=== PATIENT | male | born 1940 ===

== ENCOUNTER 2019-02-28 09:34 | Day surgery (SDC) | payer MEDICARE, OTHER ==
[2019-02-28] MEDS ORDERED: LIDOcaine 2% 5ml jelly ONE (11:10)
== END 2019-02-28 12:09 | disposition home or self-care (01) ==
LOC: WOUND CARE 09:34
PROVIDERS: ATTEND Surgery
DX: E11.622 Type 2 diabetes mellitus with other skin ulcer (principal); L98.492 Non-pressure chronic ulcer of skin of other sites with fat layer exposed; L05.01 Pilonidal cyst with abscess; I11.0 Hypertensive heart disease with heart failure; I50.9 Heart failure, unspecified; G30.9 Alzheimer's disease, unspecified; B35.1 Tinea unguium; F02.80 Dementia in other diseases classified elsewhere, unspecified severity, without behavioral disturbance, psychotic disturbance, mood disturbance, and anxiety; Z79.01 Long term (current) use of anticoagulants
CPT/HCPCS: 36416; 82948; 97597; A4663; A6021

== ENCOUNTER 2019-03-07 09:37 | Day surgery (SDC) | payer MEDICARE, OTHER ==
[2019-03-07] MEDS ORDERED: LIDOcaine 2% 5ml jelly ONE (10:03)
== END 2019-03-07 11:16 | disposition home or self-care (01) ==
LOC: WOUND CARE 09:37
PROVIDERS: ATTEND Surgery
DX: E11.622 Type 2 diabetes mellitus with other skin ulcer (principal); L98.492 Non-pressure chronic ulcer of skin of other sites with fat layer exposed; L05.01 Pilonidal cyst with abscess; I11.0 Hypertensive heart disease with heart failure; I50.9 Heart failure, unspecified; G30.9 Alzheimer's disease, unspecified; B35.1 Tinea unguium; F02.80 Dementia in other diseases classified elsewhere, unspecified severity, without behavioral disturbance, psychotic disturbance, mood disturbance, and anxiety; Z79.01 Long term (current) use of anticoagulants
CPT/HCPCS: 97597; A4663; A6021

== ENCOUNTER 2019-03-14 09:18 | Day surgery (SDC) | payer MEDICARE, OTHER ==
[2019-03-14] MEDS ORDERED: LIDOcaine 2% 5ml jelly ONE (10:34)
== END 2019-03-14 11:10 | disposition home or self-care (01) ==
LOC: WOUND CARE 09:18
PROVIDERS: ATTEND Surgery
DX: E11.622 Type 2 diabetes mellitus with other skin ulcer (principal); L98.492 Non-pressure chronic ulcer of skin of other sites with fat layer exposed; L05.01 Pilonidal cyst with abscess; I11.0 Hypertensive heart disease with heart failure; I50.9 Heart failure, unspecified; G30.9 Alzheimer's disease, unspecified; B35.1 Tinea unguium; F02.80 Dementia in other diseases classified elsewhere, unspecified severity, without behavioral disturbance, psychotic disturbance, mood disturbance, and anxiety; Z79.01 Long term (current) use of anticoagulants
CPT/HCPCS: 97597; A4663; A6021

== ENCOUNTER 2019-03-21 09:22 | Day surgery (SDC) | payer MEDICARE, OTHER ==
[2019-03-21] MEDS ORDERED: LIDOcaine 2% 5ml jelly ONE (10:34)
== END 2019-03-21 11:55 | disposition home or self-care (01) ==
LOC: WOUND CARE 09:22
PROVIDERS: ATTEND Surgery
DX: E11.622 Type 2 diabetes mellitus with other skin ulcer (principal); L98.492 Non-pressure chronic ulcer of skin of other sites with fat layer exposed; L05.01 Pilonidal cyst with abscess; I11.0 Hypertensive heart disease with heart failure; I50.9 Heart failure, unspecified; G30.9 Alzheimer's disease, unspecified; F02.80 Dementia in other diseases classified elsewhere, unspecified severity, without behavioral disturbance, psychotic disturbance, mood disturbance, and anxiety; B35.1 Tinea unguium; Z79.01 Long term (current) use of anticoagulants
CPT/HCPCS: 97597; A4663; A6021

== ENCOUNTER 2019-03-28 09:25 | Day surgery (SDC) | payer MEDICARE, OTHER ==
[2019-03-28] MEDS ORDERED: LIDOcaine 2% 5ml jelly ONE (11:02)
== END 2019-03-28 11:56 | disposition home or self-care (01) ==
LOC: WOUND CARE 09:25
PROVIDERS: ATTEND Surgery
DX: E11.622 Type 2 diabetes mellitus with other skin ulcer (principal); L98.492 Non-pressure chronic ulcer of skin of other sites with fat layer exposed; L05.01 Pilonidal cyst with abscess; I11.0 Hypertensive heart disease with heart failure; I50.9 Heart failure, unspecified; G30.9 Alzheimer's disease, unspecified; F02.80 Dementia in other diseases classified elsewhere, unspecified severity, without behavioral disturbance, psychotic disturbance, mood disturbance, and anxiety; B35.1 Tinea unguium; Z79.01 Long term (current) use of anticoagulants
CPT/HCPCS: 97597; A4663; A6021

== ENCOUNTER 2019-04-11 09:35 | Day surgery (SDC) | payer MEDICARE, OTHER ==
[2019-04-11] MEDS ORDERED: LIDOcaine 2% 5ml jelly ONE (10:18)
== END 2019-04-11 10:50 | disposition home or self-care (01) ==
LOC: WOUND CARE 09:35
PROVIDERS: ATTEND Surgery
DX: E11.622 Type 2 diabetes mellitus with other skin ulcer (principal); L98.492 Non-pressure chronic ulcer of skin of other sites with fat layer exposed; L05.01 Pilonidal cyst with abscess; I11.0 Hypertensive heart disease with heart failure; I50.9 Heart failure, unspecified; G30.9 Alzheimer's disease, unspecified; B35.1 Tinea unguium; F02.80 Dementia in other diseases classified elsewhere, unspecified severity, without behavioral disturbance, psychotic disturbance, mood disturbance, and anxiety; Z79.01 Long term (current) use of anticoagulants
CPT/HCPCS: 36416; 82948; 97597; A4663; A6021

== ENCOUNTER 2019-04-25 09:30 | Day surgery (SDC) | payer MEDICARE, OTHER ==
[2019-04-25] MEDS ORDERED: LIDOcaine 2% 5ml jelly ONE (10:25)
== END 2019-04-25 11:25 | disposition home or self-care (01) ==
LOC: WOUND CARE 09:30
PROVIDERS: ATTEND Surgery
DX: E11.622 Type 2 diabetes mellitus with other skin ulcer (principal); L98.492 Non-pressure chronic ulcer of skin of other sites with fat layer exposed; L05.01 Pilonidal cyst with abscess; I11.0 Hypertensive heart disease with heart failure; I50.9 Heart failure, unspecified; G30.9 Alzheimer's disease, unspecified; B35.1 Tinea unguium; F02.80 Dementia in other diseases classified elsewhere, unspecified severity, without behavioral disturbance, psychotic disturbance, mood disturbance, and anxiety; Z79.01 Long term (current) use of anticoagulants
CPT/HCPCS: 36416; 82948; 97597; A4663; A6021

== ENCOUNTER 2019-05-09 09:30 | Day surgery (SDC) | payer MEDICARE, MEDICAID ==
[2019-05-09] MEDS ORDERED: LIDOcaine 2% 5ml jelly ONE (09:57)
== END 2019-05-09 11:01 | disposition home or self-care (01) ==
LOC: WOUND CARE 09:30
PROVIDERS: ATTEND Surgery
DX: E11.622 Type 2 diabetes mellitus with other skin ulcer (principal); L98.492 Non-pressure chronic ulcer of skin of other sites with fat layer exposed; L05.01 Pilonidal cyst with abscess; I11.0 Hypertensive heart disease with heart failure; I50.9 Heart failure, unspecified; G30.9 Alzheimer's disease, unspecified; B35.1 Tinea unguium; F02.80 Dementia in other diseases classified elsewhere, unspecified severity, without behavioral disturbance, psychotic disturbance, mood disturbance, and anxiety; Z79.01 Long term (current) use of anticoagulants
CPT/HCPCS: 97597

== ENCOUNTER 2019-05-24 09:30 | Day surgery (SDC) | payer MEDICARE, MEDICAID ==
[2019-05-24] MEDS ORDERED: LIDOcaine 2% 5ml jelly ONE (10:00)
== END 2019-05-24 10:40 | disposition home or self-care (01) ==
LOC: WOUND CARE 09:30
PROVIDERS: ATTEND Nurse Practitioner Family
DX: E11.622 Type 2 diabetes mellitus with other skin ulcer (principal); L98.492 Non-pressure chronic ulcer of skin of other sites with fat layer exposed; L05.01 Pilonidal cyst with abscess; I11.0 Hypertensive heart disease with heart failure; I50.9 Heart failure, unspecified; G30.9 Alzheimer's disease, unspecified; F02.80 Dementia in other diseases classified elsewhere, unspecified severity, without behavioral disturbance, psychotic disturbance, mood disturbance, and anxiety; B35.1 Tinea unguium; Z79.01 Long term (current) use of anticoagulants
CPT/HCPCS: 97597

== ENCOUNTER 2019-06-07 09:30 | Day surgery (SDC) | payer MEDICARE, MEDICAID ==
[2019-06-07] MEDS ORDERED: LIDOcaine/PRILOcaine 5gm cream TP ONE (10:01)
== END 2019-06-07 10:31 | disposition home or self-care (01) ==
LOC: WOUND CARE 09:30
PROVIDERS: ATTEND Surgery
DX: E11.622 Type 2 diabetes mellitus with other skin ulcer (principal); L98.492 Non-pressure chronic ulcer of skin of other sites with fat layer exposed; L05.01 Pilonidal cyst with abscess; I11.0 Hypertensive heart disease with heart failure; I50.9 Heart failure, unspecified; G30.9 Alzheimer's disease, unspecified; F02.80 Dementia in other diseases classified elsewhere, unspecified severity, without behavioral disturbance, psychotic disturbance, mood disturbance, and anxiety; B35.1 Tinea unguium; Z79.01 Long term (current) use of anticoagulants
CPT/HCPCS: 97597; A6021